=== PATIENT | male | born 1940 | race Caucasian/White ===

== ENCOUNTER 2019-09-02 15:33 | Emergency (ER) | payer MEDICARE ==
[~2019-09-02] VITALS: Ht 182.9 cm; Wt 84.1 kg
[2019-09-02 16:03] VITALS: Ht 182.9 cm; Wt 84.1 kg
[2019-09-02] MEDS ORDERED: COUMADIN4 MG PO (16:06)
[2019-09-02 17:21] LABS: BASOPHILS 0.5 % (0-2); EOSINOPHILS 3.6 % (0-7); HEMATOCRIT 40.5 % (42.0-54.0); HEMOGLOBIN 13.4 g/dL (13.5-17.5); IMMATURE GRANULOCYTES 0.1 % (0-5); LYMPHOCYTES 14.7 % (15-50); MCH 33.2 pg (26.0-34.0); MCHC 33.1 g/dL (31.0-37.0); MCV 100.2 fL (80.0-100.0); MONOCYTES 7.9 % (2-11); NEUTROPHILS 73.2 % (40-80); PLATELET COUNT 178 10x3/uL (130-400); RBC 4.04 10x6/uL (4.20-6.10); RDW 13.1 % (11.5-14.5); WBC 7.3 10x3/uL (4.8-10.8)
[2019-09-02 17:34] LABS: APTT 40.6 SECONDS (22.8-39.4); INR 3.79 (0.85-1.17); PROTIME 36.6 SECONDS (11.6-15.0)
[2019-09-02 17:46] LABS: ALBUMIN 3.2 g/dL (3.4-5.0); ANION GAP 14.6 mmol/L (8-16); BILIRUBIN - TOTAL 0.37 mg/dL (0.2-1.3); CALCIUM 8.1 mg/dL (8.5-10.1); CARBON DIOXIDE 19.7 mmol/L (21.0-32.0); CREATININE - SERUM 2.5 mg/dL (0.6-1.3); POTASSIUM - SERUM 4.3 mmol/L (3.5-5.1); PROTEIN - SERUM 6.8 g/dL (6.4-8.2)
[2019-09-02] MEDS ORDERED: ACETAMINOPHEN500 M1 PO (18:44)
[2019-09-02] MEDS ORDERED: CYCLOBENZAPRINE10 MG PO (18:44)
[2019-09-02] MEDS ORDERED: NAPROSYN500 MG PO (18:46)
[2019-09-02 18:55] VITALS: BP 137/77
== END 2019-09-02 18:56 | disposition home or self-care (01) ==
LOC: D.ER 15:33
PROVIDERS: Family Medicine
DX: S50.311A Abrasion of right elbow, initial encounter (principal); W19.XXXA Unspecified fall, initial encounter; Y92.511 Restaurant or cafe as the place of occurrence of the external cause; S50.01XA Contusion of right elbow, initial encounter; S80.01XA Contusion of right knee, initial encounter; M25.551 Pain in right hip; E11.9 Type 2 diabetes mellitus without complications; I10 Essential (primary) hypertension; Z79.01 Long term (current) use of anticoagulants